=== PATIENT | male | born 1965 | race Two or more races ===

== ENCOUNTER 2023-06-01 17:42 | Emergency (ER) | payer OTHER, MEDICARE ==
[~2023-06-01] VITALS: Ht 167.6 cm; Wt 94.1 kg
[2023-06-01] MEDS ORDERED: HYDR200T46 PO (17:54)
[2023-06-01] MEDS: ADENOSINE 6MG 2ML INJECTION IV STA ×3 (18:13→18:26)
[2023-06-01 18:34] LABS: BASO % 0.3 % (0.0-1.0); EOS # 0.1 10^3/uL (0.0-0.5); EOS % 1.2 % (0.0-3.0); HEMATOCRIT 46.8 % (42.0-52.0); HEMOGLOBIN 16.1 g/dl (13.5-17.5); LYMPH # 2.7 10^3/uL (1.5-5.0); LYMPH % 27.4 % (24.0-44.0); MEAN CORPUSCULAR HEMOGLOBIN 31.6 pg (27.0-33.0); MEAN CORPUSCULAR HGB CONC 34.4 g/dl (32.0-36.5); MEAN CORPUSCULAR VOLUME 91.9 fl (80.0-96.0); MONO # 0.7 10^3/uL (0.0-0.8); MONO % 6.7 % (2.0-8.0); NEUTROPHILS # 6.3 10^3/uL (1.5-8.5); NEUTROPHILS % 64.1 % (36.0-66.0); PLATELET COUNT, AUTOMATED 238 10^3/uL (150-450); RED BLOOD COUNT 5.09 10^6/uL (4.30-6.10); WHITE BLOOD COUNT 9.8 10^3/uL (4.0-10.0)
[2023-06-01] MEDS: NS 1,000 ML IV ONE (18:45)
[2023-06-01 18:54] LABS: LIPASE 43 U/L (12-53)
[2023-06-01 18:56] LABS: ALBUMIN 3.8 G/DL (3.2-5.2); ALKALINE PHOSPHATASE 73 U/L (46-116); ALT/SGPT 158 U/L (7.0-40); AST/SGOT 106 U/L (<34); BILIRUBIN,DIRECT 0.1 MG/DL (<0.4); BILIRUBIN,TOTAL 0.3 MG/DL (0.3-1.2); BLOOD UREA NITROGEN 12 MG/DL (9-23); CALCIUM LEVEL 9.1 MG/DL (8.5-10.1); CARBON DIOXIDE LEVEL 27 MMOL/L (20-31); CHLORIDE LEVEL 104 MMOL/L (98-107); CK-MB VALUE MASS 3.2 NG/ML (<3.6); CREATININE FOR GFR 0.91 MG/DL (0.70-1.30); GLOMERULAR FILTRATION RATE > 60.0 (>56); GLUCOSE, FASTING 220 MG/DL (60-100); MAGNESIUM LEVEL 1.7 MG/DL (1.8-2.4); SODIUM LEVEL 137 MMOL/L (136-145)
[2023-06-01 18:57] LABS: FREE T4 0.92 NG/DL (0.89-1.76); THYROID STIMULATING HORMONE 2.074 uIU/ML (0.55-4.78)
[2023-06-01 18:58] LABS: AMPHETAMINES LEVEL URINE NEGATIVE (NEGATIVE)
[2023-06-01 18:59] LABS: BARBITURATES URINE NEGATIVE (NEGATIVE); BENZODIAZEPINES URINE NEGATIVE (NEGATIVE); COCAINE METABOLITE URINE NEGATIVE (NEGATIVE); METHADONE URINE NEGATIVE (NEGATIVE); OPIATES URINE NEGATIVE (NEGATIVE); PHENCYCLIDINE URINE NEGATIVE (NEGATIVE)
[2023-06-01 19:04] LABS: CANNABINOIDS URINE POSITIVE (NEGATIVE)
[2023-06-01 19:04] LABS: CPK CREATINE PHOSPHOKINASE 117 U/L (46-171); MB/CK RELATIVE INDEX 2.73 (< OR =4)
[2023-06-01] MEDS: MAG SULF 1GM/100ML (MAG RUN) 1 GM in IV 1 EA IV ONE (19:17)
[2023-06-01 19:58] LABS: CK-MB VALUE MASS 3.2 NG/ML (<3.6)
[2023-06-01 19:59] LABS: MB/CK RELATIVE INDEX 2.56 (< OR =4)
[2023-06-01] MEDS ORDERED: METO1TAB87 PO (20:29)
[2023-06-01 20:36] VITALS: BP 128/84
[2023-06-01] MEDS: METOPROLOL TART 25 MG TABLET PO ONE (20:36)
[2023-06-01 20:49] VITALS: BP 129/79; TEMP 98.5; O2SAT 97
== END 2023-06-01 20:53 | disposition home or self-care (01) ==
LOC: M ED 17:42
DX: I47.10 Supraventricular tachycardia, unspecified (principal); I25.2 Old myocardial infarction; F17.210 Nicotine dependence, cigarettes, uncomplicated; Z79.899 Other long term (current) drug therapy
CPT/HCPCS: 71045; 80048; 80076; 80307; 82550; 82553; 83690; 83735; 83880; 84439; 84443; 84484; 85025; 93005; 93041; 94760; 96374; 96375; 99291; J0153; J3475